=== PATIENT | female | born 1995 | race Caucasian/White ===

== ENCOUNTER → 2017-04-08 | Outpatient (CLI) | payer OTHER ==
--- NOTE | 2017-04-08 11:01 | REP ---
RIGHT ANKLE, FOUR VIEWS: HISTORY: Sprain. There is an oblique, nondisplaced fracture of the distal fibula. There is no dislocation. Soft tissue swelling is present. IMPRESSION: Oblique nondisplaced fracture of the distal fibula. Signed by Goldy Gustafson MD 04/08/2017 11:05 A
== END ==
LOC: M WUC 09:52
PROVIDERS: ATTEND Physician Assistant
DX: S93.421A Sprain of deltoid ligament of right ankle, initial encounter (principal); W18.30XA Fall on same level, unspecified, initial encounter; Y92.009 Unspecified place in unspecified non-institutional (private) residence as the place of occurrence of the external cause

== ENCOUNTER → 2017-10-10 | Outpatient (CLI) | payer OTHER ==
[2017-10-10 07:55] LABS: MEAN CORPUSCULAR HEMOGLOBIN 29.5 pg (27.0-33.0); MEAN CORPUSCULAR HGB CONC 33.4 g/dl (32.0-36.5); MEAN CORPUSCULAR VOLUME 88.4 fl (80.0-96.0); PLATELET COUNT, AUTOMATED 346 10^3/uL (150-450); RED CELL DISTRIBUTION WIDTH 12.1 % (11.5-14.5); WHITE BLOOD COUNT 5.9 10^3/uL (4.0-10.0)
[2017-10-10 08:40] LABS: ALBUMIN 3.8 GM/DL (3.2-5.2); ALBUMIN/GLOBULIN RATIO 0.97 (1.00-1.93); ALKALINE PHOSPHATASE 132 U/L (45-117); ALT/SGPT 21 U/L (12-78); ANION GAP 8 MEQ/L (8-16); AST/SGOT 8 U/L (7-37); BILIRUBIN,TOTAL 0.4 MG/DL (0.2-1.0); BLOOD UREA NITROGEN 16 MG/DL (7-18); CALCIUM LEVEL 9.1 MG/DL (8.5-10.1); CARBON DIOXIDE LEVEL 28 MEQ/L (21-32); CHLORIDE LEVEL 104 MEQ/L (98-107); CREATININE FOR GFR 0.64 MG/DL (0.55-1.02); GLUCOSE, FASTING 87 MG/DL (70-105); POTASSIUM SERUM 4.1 MEQ/L (3.5-5.1); SODIUM LEVEL 140 MEQ/L (136-145); TOTAL PROTEIN 7.7 GM/DL (6.4-8.2)
--- NOTE | 2017-10-10 08:40 | REP ---
CT Head without contrast HISTORY: Headache COMPARISON: None There is no intraparenchymal hemorrhage, acute infarct, mass or midline shift. The ventricular system is normal in appearance. There is no extra cerebral collection. There is no fracture. The visualized sinuses are clear. IMPRESSION: There is no intracranial lesion. Signed by Goldy Gustafson MD 10/10/2017 08:32 A
== END ==
LOC: M RAD 07:08
PROVIDERS: ATTEND Nurse Practitioner Adult Health
DX: R51 Headache (principal)

== ENCOUNTER → 2018-12-21 | Outpatient (REF) | payer OTHER | LOC: M LAB REF 19:15 | PROVIDERS: ATTEND Physician Assistant Medical | DX: J02.9 Acute pharyngitis, unspecified (principal) ==

== ENCOUNTER → 2022-02-25 | Outpatient (CLI) | payer OTHER ==
[2022-02-25 15:35] LABS: BASO % 0.3 % (0.0-1.0); EOS % 0.4 % (0.0-3.0); HEMATOCRIT 42.3 % (36.0-47.0); HEMOGLOBIN 14.4 g/dl (12.0-15.5); LYMPH # 1.9 10^3/uL (1.5-5.0); LYMPH % 19.9 % (24.0-44.0); MEAN CORPUSCULAR HEMOGLOBIN 30.3 pg (27.0-33.0); MEAN CORPUSCULAR VOLUME 88.9 fl (80.0-96.0); MONO # 0.6 10^3/uL (0.0-0.8); MONO % 6.2 % (2.0-8.0); NEUTROPHILS % 72.9 % (36.0-66.0); PLATELET COUNT, AUTOMATED 335 10^3/uL (150-450); RED BLOOD COUNT 4.76 10^6/uL (4.00-5.40); WHITE BLOOD COUNT 9.6 10^3/uL (4.0-10.0)
[2022-02-25 16:08] LABS: ALBUMIN 4.1 GM/DL (3.2-5.2); ALT/SGPT 31 U/L (12-78); BILIRUBIN,TOTAL 0.6 MG/DL (0.2-1.0); BLOOD UREA NITROGEN 13 MG/DL (7-18); CALCIUM LEVEL 9.6 MG/DL (8.5-10.1); CARBON DIOXIDE LEVEL 28 MEQ/L (21-32); CHLORIDE LEVEL 106 MEQ/L (98-107); CHOLESTEROL LEVEL 175 MG/DL (<200); CHOLESTEROL RISK RATIO 4.375 (<5); CREATININE FOR GFR 0.56 MG/DL (0.55-1.30); GLOMERULAR FILTRATION RATE > 60.0 (>60); GLUCOSE, FASTING 82 MG/DL (70-100); HDL CHOLESTEROL 40 MG/DL (>40); LDL CHOLESTEROL 109 MG/DL (<100); NON-HDL-C 135 MG/DL; POTASSIUM SERUM 4.3 MEQ/L (3.5-5.1); SODIUM LEVEL 138 MEQ/L (136-145); TOTAL 25(OH) VITAMIN D 23.5 NG/ML (30.0-100.0); TOTAL PROTEIN 7.8 GM/DL (6.4-8.2); TRIGLYCERIDES LEVEL 130 MG/DL (<150)
== END ==
LOC: M PLALAB 13:45
PROVIDERS: ATTEND Physician Assistant
DX: F41.9 Anxiety disorder, unspecified (principal); Z13.220 Encounter for screening for lipoid disorders; Z68.38 Body mass index [BMI] 38.0-38.9, adult

== ENCOUNTER → 2023-09-08 | Outpatient (CLI) | payer OTHER | LOC: M PLAIMG 12:05 | PROVIDERS: ATTEND Physician Assistant | DX: M54.41 Lumbago with sciatica, right side (principal) ==